=== PATIENT | male | born 1960 | race Hispanic/Latino ===

== ENCOUNTER 2017-09-26 06:56 | Day surgery (SDC) | payer OTHER ==
[2017-09-22 12:32] LABS: BASOPHILS % (AUTO) 0.9 % (0.0-5.0); EOSINOPHILS % (AUTO) 2.1 % (0.0-8.0); HEMATOCRIT 36.8 % (42-54); LYMPHOCYTES % (AUTO) 22.9 % (21.0-51.0); MEAN CORPUSCULAR HGB CONC 34.4 g/dL (32.0-36.0); MEAN CORPUSCULAR VOLUME 81.3 fL (79-99); MONOCYTES % (AUTO) 8.7 % (3.0-13.0); NEUTROPHILS % (AUTO) 65.4 % (40.0-77.0); PLATELET COUNT (AUTO) 198 K/uL (130-400); RED BLOOD CELL COUNT(AUTO) 4.53 MIL/uL (4.50-6.20); RED CELL DISTRIBUTION WIDTH 13.8 % (11.0-15.5); WHITE BLOOD COUNT (AUTO) 5.3 K/uL (4.8-10.8)
[2017-09-22 12:42] LABS: CREATININE 0.9 mg/dL (0.5-1.5); POTASSIUM 4.2 mmol/L (3.5-5.1); URIC ACID 3.1 mg/dL (2.6-7.2)
[2017-09-22 12:43] VITALS: BP 137/79
[2017-09-22] MEDS: LACTATED RINGERS 1000ML 1,000 ML IV SCH ×2 (12:45→22:45)
[2017-09-22] MEDS: CEFAZOLIN SODIUM 1 GM VIAL IVP SCH (12:45)
[2017-09-23] MEDS: CEFAZOLIN SODIUM 1 GM VIAL IVP SCH (12:45)
[2017-09-24] MEDS: CEFAZOLIN SODIUM 1 GM VIAL IVP SCH (12:45)
[2017-09-25] MEDS: CEFAZOLIN SODIUM 1 GM VIAL IVP SCH (12:45)
[~2017-09-26] VITALS: Ht 172.7 cm; Wt 116.6 kg
[2017-09-26] VITALS (17 sets, daily range): BP systolic 108–150; BP diastolic 61–95
[~2017-09-26 06:56] MED LIST: FLUO40CA49 PO; LISI40TA4 PO; OMEP20TA25 PO; TYL3 PO
[2017-09-26] MEDS ORDERED: SODIUM CHLORIDE 0.9% 1000ML 1,000 ML IV ONE (08:25)
[2017-09-26] MEDS ORDERED: WATER FOR INJECTION,STERILE 20 ML VIAL ONE (08:26)
[2017-09-26] MEDS ORDERED: ISOVUE-370 50ML VIAL IV ONE (08:46)
[2017-09-26] MEDS ORDERED: IBUP-2353 PO (09:49)
[2017-09-26] MEDS ORDERED: FENTANYL CITRATE PF 50 MCG/1 ML 2ML VIAL ONE ×2 (09:53→10:33)
[2017-09-26] MEDS ORDERED: ROCURONIUM BROMIDE 10MG/1ML 5ML VL ONE (10:05)
[2017-09-26] MEDS ORDERED: LIDOCAINE HCL MPF 1% 5ML VIAL ONE (10:05)
[2017-09-26] MEDS ORDERED: SUCCINYLCHOLINE 200MG/10ML SYR ONE (10:05)
[2017-09-26] MEDS ORDERED: GLYCOPYRROLATE 0.2 MG/ML 5 ML VIAL ONE (10:06)
[2017-09-26] MEDS ORDERED: NEOSTIGMINE METHYLSULFATE 1MG/ML IV ONE (10:06)
[2017-09-26] MEDS ORDERED: MIDAZOLAM HCL 1 MG/ML 2ML VIAL ONE (10:06)
[2017-09-26] MEDS ORDERED: PROPOFOL 10 MG/ML 20ML VIAL IV ONE ×2 (10:06→10:07)
[2017-09-26] MEDS: CEFAZOLIN SODIUM 1 GM VIAL IVP SCH (10:30)
[2017-12-14] MEDS ORDERED: OXYB5TAB10 PO (17:04)
[2017-12-14] MEDS ORDERED: FERR324T PO (17:04)
[2017-12-14] MEDS ORDERED: HYDR-3830 PO (17:04)
[2017-12-14] MEDS ORDERED: CYAN10007 IM (17:04)
[2017-12-14] MEDS ORDERED: DEXT1DRO OP (17:04)
[2017-12-14] MEDS ORDERED: FLUO-126 PO (17:04)
[2017-12-14] MEDS ORDERED: CHOL100040 PO (17:04)
[2017-12-14] MEDS ORDERED: MELO-108 PO (17:04)
[2017-12-14] MEDS ORDERED: TAMS0.4C32 PO (17:04)
[2017-12-14] MEDS ORDERED: DEXT-199 PO (17:04)
[2017-12-14] MEDS ORDERED: THIAM100TB PO (17:04)
[2017-12-14] MEDS ORDERED: ROPI2TAB2 PO (17:19)
[2017-12-14] MEDS ORDERED: [UNRECOGNIZED DRUG - OTHER] TP (17:19)
[2017-12-14] MEDS ORDERED: KCIT5T PO (17:19)
[2017-12-14] MEDS ORDERED: MULT-1278 PO (17:19)
[2017-12-14] MEDS ORDERED: OMEP20CA10 PO (17:19)
[2017-12-14] MEDS ORDERED: OMEP20TA25 PO (17:24)
[2017-12-14] MEDS ORDERED: [UNRECOGNIZED DRUG - OTHER] TP (17:31)
== END 2017-09-26 13:05 | disposition home or self-care (01) ==
LOC: DAH 06:56
PROVIDERS: ATTEND Surgery
DX: N13.30 Unspecified hydronephrosis (principal); N40.0 Benign prostatic hyperplasia without lower urinary tract symptoms; N23 Unspecified renal colic; I10 Essential (primary) hypertension; K21.9 Gastro-esophageal reflux disease without esophagitis; N32.89 Other specified disorders of bladder; Z98.890 Other specified postprocedural states; Z88.8 Allergy status to other drugs, medicaments and biological substances; Z82.49 Family history of ischemic heart disease and other diseases of the circulatory system; Z98.84 Bariatric surgery status; Z87.891 Personal history of nicotine dependence
CPT/HCPCS: 36415; 52332; 74420; 80048; 82948 ×2; 84550; 85025; 87088; A4358; C1758; C1769; C2617; J0330; J0690; J2250; J2704 ×2; J2710; J3010 ×2; J3490 ×3; J7030; Q9967; J7120

== ENCOUNTER 2017-10-02 07:37 | Emergency (ER) | payer OTHER ==
[~2017-10-02 07:37] MED LIST changes: +IBUP-2353 PO
[2017-10-02] MEDS ORDERED: MORPHINE SULFATE 4 MG/1ML SYG ONE (08:06)
[2017-10-02 08:09] LABS: APPEARANCE,URINE Cloudy (CLEAR); BILIRUBIN,URINE Negative (NEGATIVE); COLOR,URINE Red (YELLOW); GLUCOSE, URINE (UA) Negative (NEGATIVE); KETONES,URINE Negative (NEGATIVE); LEUKOCYTE ESTERASE ,URINE Moderate (NEGATIVE); NITRATE,URINE Negative (NEGATIVE); OCCULT BLOOD,URINE Large (NEGATIVE); PH,URINE 6.5 (5.0-8.0); PROTEIN,URINE POS 2+ (NEGATIVE)
[2017-10-02 08:22] LABS: BASOPHILS % (AUTO) 0.6 % (0.0-5.0); EOSINOPHILS % (AUTO) 1.9 % (0.0-8.0); HEMATOCRIT 38.5 % (42-54); LYMPHOCYTES % (AUTO) 15.1 % (21.0-51.0); MEAN CORPUSCULAR HEMOGLOBIN 27.5 pg (27.0-33.0); MEAN CORPUSCULAR VOLUME 80.9 fL (79-99); MONOCYTES % (AUTO) 8.7 % (3.0-13.0); NEUTROPHILS % (AUTO) 73.7 % (40.0-77.0); PLATELET COUNT (AUTO) 212 K/uL (130-400); RED BLOOD CELL COUNT(AUTO) 4.76 MIL/uL (4.50-6.20); RED CELL DISTRIBUTION WIDTH 14.3 % (11.0-15.5); WHITE BLOOD COUNT (AUTO) 6.9 K/uL (4.8-10.8)
[2017-10-02 08:29] LABS: BACTERIA,URINE Rare /HPF (None Seen); RBC,URINE TNTC /HPF (0-1); SQUAMOUS EPITHELIAL CELL,UR Rare /LPF (0-2)
[2017-10-02 08:35] LABS: CREATININE 0.8 mg/dL (0.5-1.5); POTASSIUM 3.7 mmol/L (3.5-5.1)
[2017-10-02] MEDS ORDERED: FENTANYL 25 MCG/HR PATCH TD ONE (09:31)
[2017-12-14] MEDS ORDERED: CHOL100040 PO (17:04)
[2017-12-14] MEDS ORDERED: HYDR-3830 PO (17:04)
[2017-12-14] MEDS ORDERED: MELO-108 PO (17:04)
[2017-12-14] MEDS ORDERED: FERR324T PO (17:04)
[2017-12-14] MEDS ORDERED: CYAN10007 IM (17:04)
[2017-12-14] MEDS ORDERED: TAMS0.4C32 PO (17:04)
[2017-12-14] MEDS ORDERED: DEXT-199 PO (17:04)
[2017-12-14] MEDS ORDERED: FLUO-126 PO (17:04)
[2017-12-14] MEDS ORDERED: OXYB5TAB10 PO (17:04)
[2017-12-14] MEDS ORDERED: THIAM100TB PO (17:04)
[2017-12-14] MEDS ORDERED: DEXT1DRO OP (17:04)
[2017-12-14] MEDS ORDERED: [UNRECOGNIZED DRUG - OTHER] TP (17:19)
[2017-12-14] MEDS ORDERED: MULT-1278 PO (17:19)
[2017-12-14] MEDS ORDERED: OMEP20CA10 PO (17:19)
[2017-12-14] MEDS ORDERED: ROPI2TAB2 PO (17:19)
[2017-12-14] MEDS ORDERED: KCIT5T PO (17:19)
[2017-12-14] MEDS ORDERED: OMEP20TA25 PO (17:24)
[2017-12-14] MEDS ORDERED: [UNRECOGNIZED DRUG - OTHER] TP (17:31)
== END 2017-10-02 11:38 | disposition home or self-care (01) ==
LOC: EDH 07:37
DX: R10.9 Unspecified abdominal pain (principal); R31.9 Hematuria, unspecified; N50.819 Testicular pain, unspecified; I10 Essential (primary) hypertension; R51 Headache; Z88.8 Allergy status to other drugs, medicaments and biological substances; Z98.890 Other specified postprocedural states; Z87.891 Personal history of nicotine dependence
CPT/HCPCS: 36415; 74018; 76770; 76870; 80048; 81001; 85025; 87088; 96372; 96374; 99285; J2270

== ENCOUNTER 2017-12-15 07:45 | Day surgery (SDC) | payer OTHER ==
[2017-12-14 16:24] VITALS: BP 138/82
[2017-12-15] VITALS (12 sets, daily range): BP systolic 92–126; BP diastolic 42–73
[~2017-12-15] VITALS: Ht 175.3 cm; Wt 111.9 kg
[~2017-12-15 07:45] MED LIST changes: +CEFAZOLIN 3GM /D5W 100ML 100 ML IV SCH; +CHOL100040 PO; +CYAN10007 IM; +DEXT-199 PO; +DEXT1DRO OP; +FERR324T PO; +FLUO-126 PO; -FLUO40CA49 PO; +HYDR-3830 PO; -IBUP-2353 PO; +KCIT5T PO; +MELO-108 PO; +MULT-1278 PO; +OXYB5TAB10 PO; +ROPI2TAB2 PO; +TAMS0.4C32 PO; +THIAM100TB PO; -TYL3 PO; +[UNRECOGNIZED DRUG - OTHER] TP
[2017-12-15] MEDS ORDERED: LACTATED RINGERS 1000ML 1,000 ML IV ONE (08:57)
[2017-12-15] MEDS: CEFAZOLIN SODIUM 1 GM VIAL ONE ×2 (09:16→10:10)
[2017-12-15] MEDS ORDERED: LIDOCAINE PF 2% 5ML ABBOJECT ONE (09:31)
[2017-12-15] MEDS ORDERED: GLYCOPYRROLATE 0.2 MG/ML 5 ML VIAL ONE (09:31)
[2017-12-15] MEDS ORDERED: DEXAMETHASONE SOD PHOSPHATE 10MG/ML 1ML VIAL ONE ×2 (09:31→12:19)
[2017-12-15] MEDS ORDERED: MIDAZOLAM HCL 1 MG/ML 2ML VIAL ONE (09:32)
[2017-12-15] MEDS ORDERED: PROPOFOL 10 MG/ML 20ML VIAL IV ONE (09:32)
[2017-12-15] MEDS ORDERED: FENTANYL CITRATE PF 50 MCG/1 ML 2ML VIAL ONE ×3 (09:33→11:57)
[2017-12-15] MEDS ORDERED: EPINEPHRINE 1 MG/ML 30ML VIAL IJ ONE (10:24)
[2017-12-15] MEDS ORDERED: PHENYLEPHRINE HCL 10 MG/ML 1ML VIAL IV ONE (11:38)
[2017-12-15] MEDS ORDERED: ROCURONIUM BROMIDE 10MG/1ML 5ML VL ONE (11:57)
[2017-12-15] MEDS ORDERED: SUCCINYLCHOLINE CHLORIDE 20 MG/ML 10 ML VIAL ONE (11:57)
[2017-12-15] MEDS ORDERED: ROPIVACAINE 0.5% 5MG/ML 30ML IJ ONE (12:18)
[2017-12-15] MEDS ORDERED: LIDOCAINE HCL 4% LTA SOL 4 ML VIAL ONE (12:18)
[2017-12-15] MEDS ORDERED: NEOSTIGMINE METHYLSULFATE 1MG/ML IV ONE (12:19)
[2017-12-15] MEDS ORDERED: ONDANSETRON HCL MDV 20ML 2 MG/ML VIAL ONE (12:19)
[2017-12-15] MEDS ORDERED: NAPR-1192 PO (14:03)
[2017-12-15] MEDS ORDERED: CEPH500B PO (14:04)
[2017-12-15] MEDS ORDERED: HYDR-309 PO (14:04)
== END 2017-12-15 14:33 | disposition home or self-care (01) ==
LOC: DAH 07:45
PROVIDERS: ATTEND Orthopaedic Surgery
DX: M75.101 Unspecified rotator cuff tear or rupture of right shoulder, not specified as traumatic (principal); Z88.8 Allergy status to other drugs, medicaments and biological substances; Z98.890 Other specified postprocedural states; Z98.84 Bariatric surgery status; Z68.35 Body mass index [BMI] 35.0-35.9, adult; I10 Essential (primary) hypertension; R73.9 Hyperglycemia, unspecified; M25.811 Other specified joint disorders, right shoulder
CPT/HCPCS: 29824; 29826; 29827; 82948 ×2; A4218; A4565; A4649 ×5; A4930; A6204; C1763; J0171; J0330; J0690 ×2; J1100 ×2; J2001; J2250; J2370; J2704; J2710; J2795; J3010 ×3; J3490 ×2; J7030; J7120

== ENCOUNTER 2018-07-04 07:56 | Inpatient (IN) | payer OTHER ==
[~2018-07-04] VITALS: Ht 172.7 cm; Wt 85.7 kg
[~2018-07-04 07:56] MED LIST changes: -CEFAZOLIN 3GM /D5W 100ML 100 ML IV SCH; +CEPH500B PO; -DEXT-199 PO; +HYDR-4457 PO; +NAPR-1192 PO; +[UNRECOGNIZED DRUG - CODE] PO
[2018-07-04] MEDS ORDERED: ONDANSETRON HCL 4 MG/2 ML VIAL ONE (08:25)
[2018-07-04] MEDS ORDERED: SODIUM CHLORIDE 0.9% 1000ML 1,000 ML IV ONE (08:25)
[2018-07-04] MEDS ORDERED: MORPHINE SULFATE 4 MG/1ML SYG ONE ×4 (08:26→15:09)
[2018-07-04 08:49] LABS: BASOPHILS % (AUTO) 0.6 % (0.0-5.0); EOSINOPHILS % (AUTO) 0.8 % (0.0-8.0); HEMATOCRIT 26.9 % (42-54); LYMPHOCYTES % (AUTO) 14.6 % (21.0-51.0); MEAN CORPUSCULAR HEMOGLOBIN 29.5 pg (27.0-33.0); MEAN CORPUSCULAR HGB CONC 34.1 g/dL (32.0-36.0); MEAN CORPUSCULAR VOLUME 86.4 fL (79-99); MONOCYTES % (AUTO) 10.9 % (3.0-13.0); NEUTROPHILS % (AUTO) 73.1 % (40.0-77.0); PLATELET COUNT (AUTO) 238 K/uL (130-400); RED BLOOD CELL COUNT(AUTO) 3.12 MIL/uL (4.50-6.20); WHITE BLOOD COUNT (AUTO) 10.8 K/uL (4.8-10.8)
[2018-07-04 08:56] LABS: CREATININE 0.7 mg/dL (0.5-1.5); POTASSIUM 3.8 mmol/L (3.5-5.1)
[2018-07-04 09:03] LABS: ALBUMIN 1.2 g/dL (3.5-5.0); TOTAL PROTEIN, SERUM 6.9 g/dL (6.0-8.3)
[2018-07-04] MEDS ORDERED: IOHEXOL-350 75 ML VIAL IV ONE (12:10)
[2018-07-04] MEDS: MORPHINE SULFATE 4 MG/1ML SYG IV PRN (16:57)
[2018-07-04 17:01] VITALS: BP 108/61
[2018-07-04] MEDS ORDERED: DEXTROSE 4 GM TAB.CHEW PO SCH (17:45)
[2018-07-04] MEDS ORDERED: ACETAMINOPHEN 325 MG TAB PO PRN (17:45)
[2018-07-04] MEDS ORDERED: ONDANSETRON HCL 4 MG/2 ML VIAL IV PRN (17:45)
[2018-07-04] MEDS ORDERED: HYDRALAZINE HCL 20 MG/ML VIAL IV PRN (17:45)
[2018-07-04] MEDS: FENTANYL 100 MCG/HR PATCH TD SCH (18:21)
[2018-07-04 20:00] VITALS: BP 102/65
[2018-07-04] MEDS: HYDROCODONE/ACETAMINOPHEN 10/325 MG TAB PO PRN (20:33)
[2018-07-04] MEDS: FERROUS GLUCONATE 325 MG TABLET PO SCH (20:35)
[2018-07-04] MEDS: TAMSULOSIN HCL 0.4 MG CAP.ER.24H PO SCH (20:36)
[2018-07-04] MEDS: HYDROXYZINE HCL 10 MG TABLET PO SCH (20:36)
[2018-07-04] MEDS: FAMOTIDINE/PF 20 MG/2 ML VIAL IV SCH (20:37)
[2018-07-04] MEDS: ROPINIROLE HCL 1 MG TABLET PO SCH (20:37)
[2018-07-04] MEDS: POTASSIUM CITRATE PO SCH (20:42)
[2018-07-04] MEDS: ARTIFICAL TEARS SOL 15 ML OP SCH ×2 (20:49→20:50)
[2018-07-05] VITALS: BP 100/60
[2018-07-05 04:00] VITALS: BP 114/66
[2018-07-05] MEDS: NAPROXEN 250 MG TAB PO SCH ×2 (05:04→17:09)
[2018-07-05] MEDS: HYDROCODONE/ACETAMINOPHEN 10/325 MG TAB PO PRN ×2 (06:47→13:31)
[2018-07-05 07:30] VITALS: BP 87/48
[2018-07-05] MEDS ORDERED: [UNRECOGNIZED DRUG - OTHER] TP PRN (09:00)
[2018-07-05] MEDS: MORPHINE SULFATE 4 MG/1ML SYG IV PRN (10:04)
[2018-07-05] MEDS: PANTOPRAZOLE SODIUM 40 MG TABLET.DR PO SCH (10:33)
[2018-07-05] MEDS: HYDROXYZINE HCL 10 MG TABLET PO SCH ×2 (10:33→21:49)
[2018-07-05] MEDS: FAMOTIDINE/PF 20 MG/2 ML VIAL IV SCH ×2 (10:33→21:48)
[2018-07-05] MEDS: ARTIFICAL TEARS SOL 15 ML OP SCH ×4 (10:33→21:52)
[2018-07-05] MEDS: THIAMINE HCL 100 MG TABLET PO SCH (10:33)
[2018-07-05] MEDS: FLUOXETINE HCL 20 MG CAPSULE PO SCH (10:33)
[2018-07-05] MEDS: **HM**Cholecalciferol (Vitamin D3) (Vitamin D3) 1,000 UNIT PO SCH (10:33)
[2018-07-05] MEDS: MULTIVITAMIN WITH MINERALS TABLET PO SCH (10:33)
[2018-07-05] MEDS: POTASSIUM CITRATE PO SCH ×2 (10:33→21:00)
[2018-07-05] MEDS: MELOXICAM 7.5 MG TABLET PO SCH (10:33)
[2018-07-05] MEDS: ROPINIROLE HCL 1 MG TABLET PO SCH ×2 (10:33→21:49)
[2018-07-05] MEDS: FERROUS GLUCONATE 325 MG TABLET PO SCH ×2 (10:33→21:49)
[2018-07-05] MEDS: OXYBUTYNIN CHLORIDE 5 MG TABLET PO SCH (10:33)
[2018-07-05] MEDS: ENOXAPARIN SODIUM 40 MG/0.4 ML SYRINGE SQ SCH (10:34)
[2018-07-05 11:00] VITALS: BP 88/50
[2018-07-05 15:30] VITALS: BP 95/49
[2018-07-05 20:00] VITALS: BP 94/50
[2018-07-05] MEDS: TAMSULOSIN HCL 0.4 MG CAP.ER.24H PO SCH (21:49)
[2018-07-05] MEDS: SENNOSIDES 8.6 MG TABLET PO SCH (21:50)
[2018-07-06] VITALS (7 sets, daily range): BP systolic 90–117; BP diastolic 50–71
[2018-07-06] MEDS: NAPROXEN 250 MG TAB PO SCH ×2 (05:45→18:49)
[2018-07-06] MEDS: HYDROMORPHONE HCL 2 MG TAB PO PRN ×2 (07:12→16:15)
[2018-07-06] MEDS: **HM**Cholecalciferol (Vitamin D3) (Vitamin D3) 1,000 UNIT PO SCH (09:00)
[2018-07-06] MEDS: POTASSIUM CITRATE PO SCH ×2 (09:00→21:00)
[2018-07-06] MEDS: OXYBUTYNIN CHLORIDE 5 MG TABLET PO SCH (09:26)
[2018-07-06] MEDS: MELOXICAM 7.5 MG TABLET PO SCH (09:26)
[2018-07-06] MEDS: FERROUS GLUCONATE 325 MG TABLET PO SCH ×2 (09:27→21:27)
[2018-07-06] MEDS: MULTIVITAMIN WITH MINERALS TABLET PO SCH (09:27)
[2018-07-06] MEDS: FLUOXETINE HCL 20 MG CAPSULE PO SCH (09:27)
[2018-07-06] MEDS: FAMOTIDINE/PF 20 MG/2 ML VIAL IV SCH ×2 (09:27→21:28)
[2018-07-06] MEDS: THIAMINE HCL 100 MG TABLET PO SCH (09:27)
[2018-07-06] MEDS: SENNOSIDES 8.6 MG TABLET PO SCH ×2 (09:27→21:27)
[2018-07-06] MEDS: ROPINIROLE HCL 1 MG TABLET PO SCH ×2 (09:27→21:27)
[2018-07-06] MEDS: HYDROXYZINE HCL 10 MG TABLET PO SCH ×2 (09:27→21:27)
[2018-07-06] MEDS: PANTOPRAZOLE SODIUM 40 MG TABLET.DR PO SCH (09:27)
[2018-07-06] MEDS: ENOXAPARIN SODIUM 40 MG/0.4 ML SYRINGE SQ SCH (09:33)
[2018-07-06] MEDS: ARTIFICAL TEARS SOL 15 ML OP SCH ×4 (09:44→21:28)
[2018-07-06] MEDS: TAMSULOSIN HCL 0.4 MG CAP.ER.24H PO SCH (21:27)
[2018-07-07 03:00] VITALS: BP 109/58
[2018-07-07] MEDS: HYDROMORPHONE HCL 2 MG TAB PO PRN ×3 (03:50→18:51)
[2018-07-07] MEDS: NAPROXEN 250 MG TAB PO SCH (05:45)
[2018-07-07 08:00] VITALS: BP 98/48
[2018-07-07] MEDS: FLUOXETINE HCL 20 MG CAPSULE PO SCH (08:05)
[2018-07-07] MEDS: ROPINIROLE HCL 1 MG TABLET PO SCH ×2 (08:05→20:39)
[2018-07-07] MEDS: MELOXICAM 7.5 MG TABLET PO SCH (08:05)
[2018-07-07] MEDS: THIAMINE HCL 100 MG TABLET PO SCH (08:05)
[2018-07-07] MEDS: MULTIVITAMIN WITH MINERALS TABLET PO SCH (08:05)
[2018-07-07] MEDS: SENNOSIDES 8.6 MG TABLET PO SCH ×2 (08:06→20:39)
[2018-07-07] MEDS: PANTOPRAZOLE SODIUM 40 MG TABLET.DR PO SCH (08:06)
[2018-07-07] MEDS: HYDROXYZINE HCL 10 MG TABLET PO SCH ×2 (08:06→20:39)
[2018-07-07] MEDS: OXYBUTYNIN CHLORIDE 5 MG TABLET PO SCH (08:06)
[2018-07-07] MEDS: FAMOTIDINE/PF 20 MG/2 ML VIAL IV SCH ×2 (08:06→21:15)
[2018-07-07] MEDS: FERROUS GLUCONATE 325 MG TABLET PO SCH ×2 (08:06→21:14)
[2018-07-07] MEDS: ENOXAPARIN SODIUM 40 MG/0.4 ML SYRINGE SQ SCH (08:07)
[2018-07-07] MEDS: POTASSIUM CITRATE PO SCH ×2 (08:10→21:00)
[2018-07-07] MEDS: **HM**Cholecalciferol (Vitamin D3) (Vitamin D3) 1,000 UNIT PO SCH (08:10)
[2018-07-07] MEDS: ARTIFICAL TEARS SOL 15 ML OP SCH ×4 (10:13→21:14)
[2018-07-07 11:58] VITALS: BP 99/49
[2018-07-07 16:00] VITALS: BP 101/61
[2018-07-07] MEDS: FENTANYL 100 MCG/HR PATCH TD SCH (18:43)
[2018-07-07 19:00] VITALS: BP 108/58
[2018-07-07] MEDS: TAMSULOSIN HCL 0.4 MG CAP.ER.24H PO SCH (20:38)
[2018-07-07 23:00] VITALS: BP 106/53
[2018-07-08 03:00] VITALS: BP 102/48
[2018-07-08] MEDS: HYDROMORPHONE HCL 2 MG TAB PO PRN ×4 (05:48→22:18)
[2018-07-08 08:09] VITALS: BP 97/56
[2018-07-08] MEDS: POTASSIUM CITRATE PO SCH ×2 (09:00→20:51)
[2018-07-08] MEDS: **HM**Cholecalciferol (Vitamin D3) (Vitamin D3) 1,000 UNIT PO SCH (09:00)
[2018-07-08] MEDS: PANTOPRAZOLE SODIUM 40 MG TABLET.DR PO SCH (10:10)
[2018-07-08] MEDS: THIAMINE HCL 100 MG TABLET PO SCH (10:11)
[2018-07-08] MEDS: FERROUS GLUCONATE 325 MG TABLET PO SCH ×2 (10:12→20:43)
[2018-07-08] MEDS: FAMOTIDINE/PF 20 MG/2 ML VIAL IV SCH ×2 (10:12→20:43)
[2018-07-08] MEDS: FLUOXETINE HCL 20 MG CAPSULE PO SCH (10:12)
[2018-07-08] MEDS: SENNOSIDES 8.6 MG TABLET PO SCH ×2 (10:12→20:43)
[2018-07-08] MEDS: ROPINIROLE HCL 1 MG TABLET PO SCH ×2 (10:12→20:43)
[2018-07-08] MEDS: MULTIVITAMIN WITH MINERALS TABLET PO SCH (10:12)
[2018-07-08] MEDS: MELOXICAM 7.5 MG TABLET PO SCH (10:12)
[2018-07-08] MEDS: HYDROXYZINE HCL 10 MG TABLET PO SCH ×2 (10:12→20:43)
[2018-07-08] MEDS: OXYBUTYNIN CHLORIDE 5 MG TABLET PO SCH (10:12)
[2018-07-08] MEDS: ENOXAPARIN SODIUM 40 MG/0.4 ML SYRINGE SQ SCH (10:15)
[2018-07-08] MEDS: ARTIFICAL TEARS SOL 15 ML OP SCH ×4 (10:21→20:44)
[2018-07-08 12:11] VITALS: BP 91/45
[2018-07-08 16:08] VITALS: BP 101/54
[2018-07-08 19:00] VITALS: BP 87/50
[2018-07-08] MEDS: TAMSULOSIN HCL 0.4 MG CAP.ER.24H PO SCH (20:43)
[2018-07-08 23:00] VITALS: BP 99/53
[2018-07-09] MEDS: HYDROMORPHONE HCL 2 MG TAB PO PRN ×4 (01:09→18:13)
[2018-07-09 03:00] VITALS: BP 90/46
[2018-07-09 08:00] VITALS: BP 93/49
[2018-07-09] MEDS: **HM**Cholecalciferol (Vitamin D3) (Vitamin D3) 1,000 UNIT PO SCH (09:00)
[2018-07-09] MEDS: POTASSIUM CITRATE PO SCH ×2 (09:00→21:00)
[2018-07-09 09:22] LABS: BASOPHILS % (AUTO) 0.4 % (0.0-5.0); EOSINOPHILS % (AUTO) 1.4 % (0.0-8.0); HEMATOCRIT 24.4 % (42-54); LYMPHOCYTES % (AUTO) 14.5 % (21.0-51.0); MEAN CORPUSCULAR HEMOGLOBIN 29.7 pg (27.0-33.0); MEAN CORPUSCULAR HGB CONC 32.7 g/dL (32.0-36.0); MEAN CORPUSCULAR VOLUME 90.9 fL (79-99); MONOCYTES % (AUTO) 8.6 % (3.0-13.0); NEUTROPHILS % (AUTO) 75.1 % (40.0-77.0); PLATELET COUNT (AUTO) 235 K/uL (130-400); RED BLOOD CELL COUNT(AUTO) 2.68 MIL/uL (4.50-6.20); RED CELL DISTRIBUTION WIDTH 20.6 % (11.0-15.5)
[2018-07-09] MEDS: MULTIVITAMIN WITH MINERALS TABLET PO SCH (10:22)
[2018-07-09] MEDS: SENNOSIDES 8.6 MG TABLET PO SCH ×2 (10:22→21:00)
[2018-07-09] MEDS: ROPINIROLE HCL 1 MG TABLET PO SCH ×2 (10:22→21:00)
[2018-07-09] MEDS: PANTOPRAZOLE SODIUM 40 MG TABLET.DR PO SCH (10:22)
[2018-07-09] MEDS: OXYBUTYNIN CHLORIDE 5 MG TABLET PO SCH (10:22)
[2018-07-09] MEDS: THIAMINE HCL 100 MG TABLET PO SCH (10:23)
[2018-07-09] MEDS: MELOXICAM 7.5 MG TABLET PO SCH (10:23)
[2018-07-09] MEDS: FAMOTIDINE/PF 20 MG/2 ML VIAL IV SCH ×2 (10:23→21:00)
[2018-07-09] MEDS: FERROUS GLUCONATE 325 MG TABLET PO SCH ×2 (10:23→21:00)
[2018-07-09] MEDS: HYDROXYZINE HCL 10 MG TABLET PO SCH ×2 (10:23→21:00)
[2018-07-09] MEDS: ENOXAPARIN SODIUM 40 MG/0.4 ML SYRINGE SQ SCH (10:24)
[2018-07-09] MEDS: ARTIFICAL TEARS SOL 15 ML OP SCH ×2 (10:30→22:57)
[2018-07-09] MEDS: FLUOXETINE HCL 20 MG CAPSULE PO SCH (10:43)
[2018-07-09 11:34] VITALS: BP 97/49
[2018-07-09 15:54] VITALS: BP 96/55
[2018-07-09 19:00] VITALS: BP 100/53
[2018-07-09] MEDS: TAMSULOSIN HCL 0.4 MG CAP.ER.24H PO SCH (21:00)
[2018-07-10] VITALS: BP 106/45
[2018-07-10] MEDS: HYDROMORPHONE HCL 2 MG TAB PO PRN ×5 (02:42→18:46)
[2018-07-10 04:00] VITALS: BP 99/62
[2018-07-10 07:30] VITALS: BP 101/51
[2018-07-10 08:28] LABS: BASOPHILS % (AUTO) 0.4 % (0.0-5.0); EOSINOPHILS % (AUTO) 2.4 % (0.0-8.0); HEMATOCRIT 23.3 % (42-54); LYMPHOCYTES % (AUTO) 12.1 % (21.0-51.0); MEAN CORPUSCULAR HEMOGLOBIN 30.4 pg (27.0-33.0); MEAN CORPUSCULAR HGB CONC 33.5 g/dL (32.0-36.0); MEAN CORPUSCULAR VOLUME 90.8 fL (79-99); MONOCYTES % (AUTO) 8.2 % (3.0-13.0); NEUTROPHILS % (AUTO) 76.9 % (40.0-77.0); PLATELET COUNT (AUTO) 291 K/uL (130-400); RED BLOOD CELL COUNT(AUTO) 2.56 MIL/uL (4.50-6.20); RED CELL DISTRIBUTION WIDTH 20.9 % (11.0-15.5)
[2018-07-10] MEDS: MELOXICAM 7.5 MG TABLET PO SCH (08:36)
[2018-07-10] MEDS: HYDROXYZINE HCL 10 MG TABLET PO SCH (08:36)
[2018-07-10] MEDS: OXYBUTYNIN CHLORIDE 5 MG TABLET PO SCH (08:36)
[2018-07-10] MEDS: THIAMINE HCL 100 MG TABLET PO SCH (08:36)
[2018-07-10] MEDS: ROPINIROLE HCL 1 MG TABLET PO SCH (08:36)
[2018-07-10] MEDS: FLUOXETINE HCL 20 MG CAPSULE PO SCH (08:37)
[2018-07-10] MEDS: FERROUS GLUCONATE 325 MG TABLET PO SCH (08:37)
[2018-07-10] MEDS: MULTIVITAMIN WITH MINERALS TABLET PO SCH (08:37)
[2018-07-10] MEDS: FAMOTIDINE/PF 20 MG/2 ML VIAL IV SCH (08:37)
[2018-07-10] MEDS: PANTOPRAZOLE SODIUM 40 MG TABLET.DR PO SCH (08:37)
[2018-07-10] MEDS: SENNOSIDES 8.6 MG TABLET PO SCH (08:37)
[2018-07-10] MEDS: ENOXAPARIN SODIUM 40 MG/0.4 ML SYRINGE SQ SCH (08:38)
[2018-07-10] MEDS: ARTIFICAL TEARS SOL 15 ML OP SCH ×3 (08:49→17:00)
[2018-07-10] MEDS: POTASSIUM CITRATE PO SCH (09:00)
[2018-07-10] MEDS: **HM**Cholecalciferol (Vitamin D3) (Vitamin D3) 1,000 UNIT PO SCH (09:00)
[2018-07-10 11:00] VITALS: BP 103/47
[2018-07-10 16:00] VITALS: BP 83/50
[2018-07-10] MEDS: FENTANYL 100 MCG/HR PATCH TD SCH (17:41)
== END 2018-07-10 19:50 | disposition hospice, home (50) | DRG 948 ==
LOC: EDH 07:56 → EDHIP 14:00 → OBSVTOIN 14:00 → 3CH 16:12
PROVIDERS: ADMIT Hospitalist; ATTEND Hospitalist
DX: G89.3 Neoplasm related pain (acute) (chronic) (principal); C64.9 Malignant neoplasm of unspecified kidney, except renal pelvis; C78.7 Secondary malignant neoplasm of liver and intrahepatic bile duct; E44.1 Mild protein-calorie malnutrition; R62.7 Adult failure to thrive; R53.81 Other malaise; Z66 Do not resuscitate; R79.89 Other specified abnormal findings of blood chemistry; I10 Essential (primary) hypertension; Z90.5 Acquired absence of kidney; Z82.49 Family history of ischemic heart disease and other diseases of the circulatory system; Z83.3 Family history of diabetes mellitus; Z88.1 Allergy status to other antibiotic agents; Z88.8 Allergy status to other drugs, medicaments and biological substances; Z28.21 Immunization not carried out because of patient refusal; Z68.28 Body mass index [BMI] 28.0-28.9, adult
CPT/HCPCS: 36415; 74177; 76700; 80053; 85025; J1650; J2270; J2405; J3490; J7030; Q9967